=== PATIENT | female | born 1960 | race Caucasian/White ===

== ENCOUNTER 2018-06-15 16:53 | Emergency (ER) | payer OTHER ==
[~2018-06-15] VITALS: Ht 162.6 cm; Wt 61.2 kg
[2018-06-15 17:03] VITALS: BP_SYST 116
[2018-06-15] MEDS ORDERED: KETOROLAC TROMETHAMINE 60 MG/2 ML VIAL IM ONE (17:30)
[2018-06-15] MEDS ORDERED: BACITRACIN 1 GM OINT TP ONE (17:30)
[2018-06-15 19:50] VITALS: BP_SYST 110
== END 2018-06-15 19:50 | disposition home or self-care (01) ==
LOC: SED 16:53
DX: S22.31XA Fracture of one rib, right side, initial encounter for closed fracture (principal); S63.615A Unspecified sprain of left ring finger, initial encounter; S00.81XA Abrasion of other part of head, initial encounter; V43.52XA Car driver injured in collision with other type car in traffic accident, initial encounter; Y93.89 Activity, other specified; Y92.410 Unspecified street and highway as the place of occurrence of the external cause; Y99.8 Other external cause status
CPT/HCPCS: 29130; 70486; 71045; 71100; 73140; 96372; 99284; J1885